=== PATIENT | female | born 1975 | race Caucasian/White ===

== ENCOUNTER → 2019-02-17 | Outpatient (CLI) | payer OTHER | END | disposition home or self-care (01) | LOC: SLR 11:00 | PROVIDERS: ATTEND Internal Medicine | DX: G47.33 Obstructive sleep apnea (adult) (pediatric) (principal); R40.0 Somnolence; R06.83 Snoring | CPT/HCPCS: G0399 ==

== ENCOUNTER → 2019-04-14 | Outpatient (CLI) | payer OTHER | END | disposition home or self-care (01) | LOC: SLR 11:00 | PROVIDERS: ATTEND Internal Medicine | DX: G47.33 Obstructive sleep apnea (adult) (pediatric) (principal); R40.0 Somnolence; R06.83 Snoring; E66.9 Obesity, unspecified | CPT/HCPCS: 95811 ==

== ENCOUNTER 2019-11-07 06:22 | Day surgery (SDC) | payer OTHER ==
[2019-11-07] MEDS ORDERED: ASPIRIN EC 325 MG TAB PO NR (08:21)
[2019-11-07] MEDS ORDERED: SODIUM CHLORIDE 0.9% 500 ML 500 ML IV SCH (09:00)
[2019-11-07 09:28] LABS: Basophils # (Auto) 0.1 K/mm3 (0.0-0.1); Basophils % (Auto) 0.6 % (0.0-1.8); Eosinophils # (Auto) 0.2 K/mm3 (0.0-0.4); Eosinophils % (Auto) 1.5 % (0.0-4.3); Lymphocytes # (Auto) 1.8 K/mm3 (1.2-5.4); Lymphocytes % (Auto) 15.8 % (13.4-35.0); Mean Corpuscular HGB Conc 34 % (30-34); Mean Corpuscular Volume 91 fl (79-97); Monocytes # (Auto) 0.8 K/mm3 (0.0-0.8); Red Blood Count 4.19 M/mm3 (3.65-5.03); Red Cell Distribution Width 14.5 % (13.2-15.2)
[2019-11-07 09:29] LABS: Partial Thromboplastin Time 23.5 Sec. (24.2-36.6); Platelet Count 92 K/mm3 (140-440)
[2019-11-07 09:46] LABS: BUN/Creatinine Ratio 28; Blood Urea Nitrogen 14 mg/dL (7-17); Calcium 9.1 mg/dL (8.4-10.2); Hemolysis Index 4
[2019-11-07] MEDS ORDERED: MIDAZOLAM 2 MG/2 ML INJ ONE (10:17)
[2019-11-07] MEDS ORDERED: fentaNYL 100 MCG/2 ML INJ ONE (10:17)
[2019-11-07] MEDS ORDERED: HEPARIN/NS 5000 UNIT/500ML 1,000 ML IR ONE (10:17)
[2019-11-07] MEDS ORDERED: VERAPAMIL 5 MG/2 ML INJ ONE (10:18)
[2019-11-07] MEDS ORDERED: LIDOCAINE (2%) 20 MG/1 ML VIAL 20 ML MDV INFILTRATI ONE (10:18)
[2019-11-07] MEDS ORDERED: HEPARIN 10,000 UNITS/10 ML VIAL ONE (10:18)
[2019-11-07] MEDS ORDERED: NITROGLYCERIN SYRINGE 3 ML ONE (10:18)
[2019-11-07] MEDS ORDERED: diphenhydrAMINE 50 MG/ML VIAL ONE (10:43)
[2019-11-07] MEDS ORDERED: HYDROCORTISONE SOD SUCC 100 MG/2 ML VIAL ONE (10:43)
[2019-11-07] MEDS ORDERED: FUROSEMIDE 40 MG/4 ML INJ ONE (11:30)
[2019-11-07] MEDS ORDERED: SODIUM CHLORIDE 0.9% 1000 ML 1,000 ML IV SCH (11:45)
[2019-11-07] MEDS ORDERED: traMADol 50 MG TAB PO PRN (11:45)
--- NOTE | 2019-11-07 11:45 | Cardiac Catherization Report ---
CARDIAC CATHETERIZATION REPORT REASON FOR PROCEDURE: Chest pain and shortness of breath. PROCEDURES: 1. Left heart catheterization. 2. Selective left and right coronary angiography. 3. Left ventricular angiography. 4. Sedation time, start 11:16, end 11:30. DESCRIPTION OF PROCEDURE: The patient was prepped and draped in a sterile fashion after informed consent. The right radial cath site was prepped and draped after a negative Fernando's test. Right radial artery was entered using Seldinger technique followed by placement of a 6-Monegasque hydrophilic sheath. Routine radial cocktail was administered via the sheath. Selective left and right coronary angiography was performed using a #3.5 left Chintan and a #4 right Chintan. The right Chintan was used for left ventricle angiography. The catheters were then removed, sheath removed, and hemostasis achieved using manual compression. The patient was returned to the postprocedure unit in stable condition. There were no complications. FINDINGS: HEMODYNAMICS: Left ventricular end-diastolic pressure was 35-40, following coronary angiography. Ascending aortic pressure was 198/108. There was no significant pressure gradient on pullback across the aortic valve. CORONARY ANGIOGRAPHY: The left main coronary artery was angiographically normal. The left anterior descending artery and its diagonal branches were angiographically normal. The circumflex artery and its obtuse marginal branches were angiographically normal. The right coronary artery was dominant, and similarly angiographically normal. Left ventricular systolic function was at the lower limits of normal, ejection fraction 50-55%. CONCLUSION: 1. Angiographically normal coronary arteries. 2. Normal left ventricular systolic function, ejection fraction 50-55%. 3. Elevated left ventricular end-diastolic pressure, following coronary angiography and associated with uncontrolled hypertension. RECOMMENDATIONS: Risk factor modification and medical therapy. JOB# [id number] CA/NTS
[2019-11-07] MEDS ORDERED: ALBUTEROL 2.5 MG/3 ML NEBU IH PRN (11:46)
[2019-11-07] MEDS ORDERED: cloNIDine 0.1 MG TAB PO PRN (11:46)
--- NOTE | 2019-11-07 11:50 | Discharge Summary ---
Short Stay Discharge Plan Activity: advance as tolerated Weight Bearing Status: Full Weight Bearing Diet: low fat, low cholesterol, low salt Wound: keep clean and dry Special Instructions: no heavy lifting (3 days) Follow up with: PRIMARY CARE, [Primary Care Provider] - 7 Days JAVED ALCANTARA MD [Staff Physician] - 7 Days
[2019-11-07 15:46] VITALS: BP 172/96
== END 2019-11-07 15:36 | disposition home or self-care (01) ==
LOC: CATHLABREC 06:22
PROVIDERS: ATTEND Internal Medicine Cardiovascular Disease
DX: R07.89 Other chest pain (principal); R06.02 Shortness of breath; I11.0 Hypertensive heart disease with heart failure; I50.32 Chronic diastolic (congestive) heart failure; J45.909 Unspecified asthma, uncomplicated; E66.9 Obesity, unspecified; K21.9 Gastro-esophageal reflux disease without esophagitis; Z79.899 Other long term (current) drug therapy; Z98.890 Other specified postprocedural states; Z90.49 Acquired absence of other specified parts of digestive tract; Z68.42 Body mass index [BMI] 45.0-49.9, adult; Z82.5 Family history of asthma and other chronic lower respiratory diseases
CPT/HCPCS: 36415; 80048; 85025; 85610; 85730; 93005; 93010; 93458; 94640; 99156; C1894; J1200; J1644; J1720; J1940; J2250; J3010; J7040; Q9967